=== PATIENT | female | born 1990 | race Caucasian/White ===

== ENCOUNTER 2016-12-09 09:13 | Day surgery (SDC) | payer OTHER ==
[~2016-12-09] VITALS: Ht 160 cm; Wt 74.9 kg
[~2016-12-09 09:13] MED LIST: ASHWAGANDHA PO; B-COMPLEX-VITA1 EACH PO; TOPAMAX100 MG PO
[2016-12-09] MEDS ORDERED: NORCO 5/3251 TABLET PO (15:46)
[2016-12-09 17:13] VITALS: BP 97/59
[2016-12-09 18:30] VITALS: BP 98/58
== END 2016-12-09 18:30 | disposition home or self-care (01) ==
LOC: SDC 09:13
DX: D24.2 Benign neoplasm of left breast (principal); N64.52 Nipple discharge; F41.9 Anxiety disorder, unspecified; Z80.3 Family history of malignant neoplasm of breast
CPT/HCPCS: 88307; J0131; J0690; J1100; J2175; J2250; J2405; J3010; Q0175; S0020